=== PATIENT | female | born 1975 | race Caucasian/White ===

== ENCOUNTER 2024-05-21 06:14 | Emergency (ER) | payer BC ==
[~2024-05-21] VITALS: Ht 154.9 cm; Wt 70.9 kg
[2024-05-21 06:15] VITALS: BP 108/67; TEMP 97.7
[2024-05-21] MEDS: triamcinolone acetonide 40mg/ml inj IM ONE (07:04)
[2024-05-21 07:09] VITALS: PULSE 74; RESP 17; O2SAT 96
== END 2024-05-21 07:11 | disposition home or self-care (01) ==
LOC: ER 06:15
DX: B34.9 Viral infection, unspecified (principal)
CPT/HCPCS: 96372; 99283; J3301